=== PATIENT | male | born 1950 | race Caucasian/White ===

== ENCOUNTER → 2018-02-22 08:03 | Outpatient (CLI) | payer OTHER, SELFPAY ==
[2018-02-22 10:39] LABS: ALB/GLOB Ratio 1.2 RATIO (0.9-2.4); AST(SGOT) 16 U/L (15-37); Alanine Aminotransfer ALT/SGPT 31 U/L (16-61); Albumin, Serum 3.7 g/dL (3.2-5.0); Alkaline Phosphatase 72 U/L (45-117); Anion Gap 9 (5-15); BUN 16 mg/dL (7-18); BUN/Creat Ratio 17.1 RATIO (10-20); Calcium,Total 8.8 mg/dL (8.5-10.1); Chloride 104 mmol/L (98-107); Cholesterol 231 mg/dL (200); Creatinine, Serum 0.94 mg/dL (0.70-1.30); EST Glomerular Filtration Rate 86 mL/min (>60); Est Glom Filt Rate - Afr Amer 104 mL/min (>60); Globulin 3.1 g/dL (2.2-4.2); Glucose 83 mg/dL (74-106); High Density Lipoprotein 43 mg/dL; Potassium 4.5 mmol/L (3.5-5.1); Protein, Total 6.8 g/dL (6.4-8.2); Sodium Level 144 mmol/L (136-145); Triglycerides 180 mg/dL; Very Low Density Lipoprotein 36 mg/dL (5-40)
== END ==
PROVIDERS: Family Provider Family Medicine; PCP Family Medicine; Visit Provider Family Medicine
DX: Z00.00 Encounter for general adult medical examination without abnormal findings (principal)
CPT/HCPCS: 36415; 80053; 80061

== ENCOUNTER → 2020-03-14 | Outpatient (CLI) | payer OTHER, SELFPAY | END | disposition home or self-care (01) | LOC: LABSPEC 15:11 | PROVIDERS: PCP Family Medicine; Referring Provider Family Medicine; Visit Provider Family Medicine | DX: U07.1 COVID-19 (principal); J06.9 Acute upper respiratory infection, unspecified | CPT/HCPCS: 87635; U0005; U0003 ==

== ENCOUNTER → 2021-01-23 | Outpatient (CLI) | payer OTHER, SELFPAY ==
[2021-01-23 09:22] LABS: Red Blood Cells-Urine 0 SEEN /hpf (0-5)
[2021-01-23 10:44] LABS: Color, Urine Yellow (Yellow); Glucose, Dipstick Normal (Normal); Ketone-Dipstick 15 mg/dl (Negative); Leukocyte Esterase-Dipstick 500 /ul (Negative); Nitrite-Dipstick Negative (Negative); Occult Blood-Urine 50 /ul (Negative); Protein-Dipstick 30 mg/dl (Negative); Specific Gravity, Urine 1.015 (1.002-1.030); Urine Bilirubin Dipstick Negative (Negative); Urine Clarity Cloudy (Clear); Urine Urobilinogen Normal (Normal)
[2021-01-23 10:52] LABS: Amorphous Sediment 1+; Bacteria 2+ /hpf (None Seen); Mucous, Urine RARE /hpf (<or=2+); Squamous Epithelial Cells - UA 0-5 SEEN /hpf (0-5); White Blood Cells 5-10 SEEN /hpf (0-5)
== END | disposition home or self-care (01) ==
LOC: LABSPEC 09:21
PROVIDERS: PCP Family Medicine; Referring Provider Family Medicine; Visit Provider Family Medicine
DX: R33.9 Retention of urine, unspecified (principal)
CPT/HCPCS: 81001; 87077; 87086; 87088; 87186

== ENCOUNTER → 2021-02-06 10:44 | Outpatient (CLI) | payer OTHER, SELFPAY ==
[2021-02-06 13:08] LABS: Anion Gap 4 (5-15); BUN 22 mg/dL (7-18); BUN/Creat Ratio 25.3 RATIO (10-20); Calcium,Total 9.3 mg/dL (8.5-10.1); Chloride 106 mmol/L (98-107); Creatinine, Serum 0.87 mg/dL (0.70-1.30); EST Glomerular Filtration Rate 93 mL/min (>60); Est Glom Filt Rate - Afr Amer 112 mL/min (>60); Glucose 94 mg/dL (74-106); PSA,Total- Diagnostic 7.41 ng/mL (0.0-4.0); Potassium 4.1 mmol/L (3.5-5.1); Sodium Level 139 mmol/L (136-145)
== END ==
PROVIDERS: PCP Family Medicine; Referring Provider Family Medicine; Visit Provider Family Medicine
DX: N40.0 Benign prostatic hyperplasia without lower urinary tract symptoms (principal); N41.0 Acute prostatitis
CPT/HCPCS: 36415; 80048; 84153

== ENCOUNTER 2021-03-07 17:01 | Outpatient (CLI) | payer OTHER, SELFPAY ==
[2021-03-07 17:44] LABS: Absolute Lymphocyte Count 1.51 X10^3/uL (0.83-4.51); Absolute Neutrophil Count 3.9 X10^3/uL (2.0-7.7); Basophil# 0.04 X10^3/uL; Basophil% 0.7 % (0-1); Eosinophil# 0.08 X10^3/uL; Eosinophils% 1.3 % (0-5); Hematocrit 41.9 % (40-54); Hemoglobin 13.9 g/dL (13.0-16.5); Lymphocyte # 1.51 X10^3/ul (0.83-4.51); Lymphocyte % 25.5 % (19-41); Mean Corp Hgb Conc 33.2 g/dL (32-36); Mean Corpuscular Hgb 28.3 pg (27.0-32.0); Mean Corpuscular Volume 85.2 fL (80-94); Mean Platelet Vol. 9.9 fl (6.2-12.0); Monocyte# 0.42 X10^3/uL; Monocyte% 7.1 % (0-10); NRBC Flagged by Analyzer 0 % (0-5); Neutrophil # 3.86 X10^3/uL (2.7-7.7); Neutrophil % 65.1 % (47-70); Platelet Count 228 K/mm3 (150-450); RBC Distribution Width CV 13.2 % (11.6-14.6); RBC Distribution Width SD 40.4 fl (35.1-43.9); Red Blood Count 4.92 M/mm3 (4.6-6.2); White Blood Count 5.9 K/mm3 (4.4-11.0)
[2021-03-07 18:44] LABS: ALB/GLOB Ratio 1.1 RATIO (0.9-2.4); AST(SGOT) 18 U/L (15-37); Alanine Aminotransfer ALT/SGPT 35 U/L (16-61); Albumin, Serum 3.7 g/dL (3.2-5.0); Alkaline Phosphatase 65 U/L (45-117); Anion Gap 10 (5-15); BUN 17 mg/dL (7-18); Calcium,Total 8.6 mg/dL (8.5-10.1); Chloride 105 mmol/L (98-107); EST Glomerular Filtration Rate 79 mL/min (>60); Est Glom Filt Rate - Afr Amer 95 mL/min (>60); Globulin 3.5 g/dL (2.2-4.2); Glucose 110 mg/dL (74-106); PSA,Total- Diagnostic 6.17 ng/mL (0.0-4.0); Potassium 4.2 mmol/L (3.5-5.1); Protein, Total 7.2 g/dL (6.4-8.2); Sodium Level 143 mmol/L (136-145)
== END 2021-03-07 23:59 | disposition home or self-care (01) ==
LOC: MFPLAB 17:05
PROVIDERS: PCP Family Medicine; Referring Provider Family Medicine; Visit Provider Family Medicine
DX: N40.2 Nodular prostate without lower urinary tract symptoms (principal)
CPT/HCPCS: 36415; 80053; 84153; 85025

== ENCOUNTER 2021-04-09 08:30 | Outpatient (CLI) | payer OTHER, SELFPAY | END 2021-04-09 23:59 | disposition home or self-care (01) | PROVIDERS: PCP Family Medicine; Referring Provider Urology; Visit Provider Urology | DX: R97.20 Elevated prostate specific antigen [PSA] (principal) | CPT/HCPCS: 36415; 84153 ==

== ENCOUNTER 2021-04-11 11:58 | Emergency (ER) | payer OTHER, SELFPAY ==
[2021-04-11] VITALS (7 sets, daily range): BP systolic 142–180; BP diastolic 59–114; PULSE 70–86; RESP 16–18; TEMP 36.2; O2SAT 94–97; BMI 26.4
--- NOTE | 2021-04-11 12:23 | EKG12_ITS ---
Test Reason : DIZZINESS Blood Pressure : / mmHG Vent. Rate : 073 BPM Atrial Rate : 073 BPM P-R Int : 182 ms QRS Dur : 098 ms QT Int : 404 ms P-R-T Axes : 032 -11 052 degrees QTc Int : 445 ms Normal sinus rhythm Normal ECG Confirmed by PHIL LEOS, KILO ([id number]), fashion editor NOHELIA BRUNSON ([id number]) on 04/15/2021 1:27:54 PM Referred By: NADYA/CAMRON Confirmed By:HIEN VILLARREAL MD
--- NOTE | 2021-04-11 12:25 | EDS_ITS ---
HPI <LUL Turner - Last Filed: 04/11/21 15:07> History of Present Illness Chief Complaint: Dizziness Narrative Narrative: 70-year-old male with PMH of cervical dystonia presents with dizziness. 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 He waited in the back of his truck until his picked him up. He felt more lightheaded and off balance when walking. Denies a spinning sensation. There was no associated vision changes, focal motor or sensory changes, chest pain, shortness of breath, nausea, or vomiting. He states he had similar symptoms 5 years ago but it resolved without intervention. He has chronic speech difficulty from dystonia that is unchanged. He does not take aspirin or blood thinners. No recent illness or head trauma. PFSH <LUL Turner - Last Filed: 04/11/21 15:07> PFS Home Medications abobotulinumtoxinA [Dysport] 1,500 units SQ X1 05/20/16 [History Last Taken Unknown] omeprazole magnesium [Prilosec Otc] 1 tab PO BID PRN PRN 05/20/16 [History Last Taken Unknown] meclizine 25 mg PO 4X/DAY PRN PRN #20 tab 04/11/21 [Rx Last Taken Unknown] Allergy/AdvReac Type Severity Reaction Status Date / Time Penicillins Allergy Unknown Verified 04/11/21 12:01 Social History Smoking Status: Never smoker ROS <LUL Turner Last Filed: 04/11/21 15:07> ROS ED ROS Narrative Constitutional: Negative for fever, chills, malaise. Eyes: Negative for visual change. ENT: Negative for sore throat, ear pain, rhinorrhea. CVS: Negative for palpitations, chest pain, syncope. Respiratory: Negative for shortness of breath, cough, orthopnea. GI: Negative for abdominal pain, nausea, vomiting, diarrhea, constipation, melena, hematochezia. : Negative for dysuria, hematuria or frequency. Neuro: Negative for headache, motor/sensory dysfunction. Skin: Negative for rash, abscess, or wound. Musc: Negative for joint pain, swelling, trauma. Heme: Negative for easy bruising, bleeding, lymphadenopathy. EXAM <LUL Turner - Last Filed: 04/11/21 15:07> Physical Exam Narrative Exam Narrative: CONST: Patient sitting in no acute distress. EYES: Normal inspection. PERRLA, EOMI, horizontal nystagmus when looking to the left. Head: Chronic head movements secondary to dystonia. ENT: Normal inspection, moist mucous membranes. NECK: Normal inspection. RESP: No respiratory distress, CTAB. CVS: Regular rate and rhythm, no murmur, no gallop. ABD: Soft and nontender, no guarding or rebound, nondistended. Back: Normal inspection. SKIN: Color normal, no rash, warm, dry, intact. EXTREMITIES: Normal appearance, no pedal edema. 5/5 upper and lower extremity strength, normal sensation to light touch, 2+ radial and DP pulses. NEURO: Oriented x4. Cranial nerves II through XII grossly intact. Chronic dysarthria secondary to dystonia. Symmetric smile, no upper or lower extremity drift, normal eliwln-vj-kvre and oorq-nh-jlzg bilaterally, no clonus and downgoing Babinski. Normal gait. PSYCH: Normal affect. Const Vital Signs: 04/11/21 11:59 04/11/21 12:26 04/11/21 12:33 Temperature 97.2 F L Temperature Source Temporal Pulse Rate 83 Pulse Rate [Lying] 79 Pulse Rate [Sitting] 79 Pulse Rate [Standing] 86 Respiratory Rate 16 Respiratory Effort Normal Non-Labored Blood Pressure 157/104 H Blood Pressure [Lying] 168/105 H Blood Pressure [Sitting] 172/114 H Blood Pressure [Standing] 179/113 H Blood Pressure Mean 121 Blood Pressure Mean [Lying] 126 Blood Pressure Mean [Sitting] 133 Blood Pressure Mean [Standing] 135 Pulse Ox 97 Oxygen Delivery Method Room Air 04/11/21 13:30 04/11/21 13:31 04/11/21 13:33 Temperature Temperature Source Pulse Rate 85 76 Pulse Rate [Lying] Pulse Rate [Sitting] Pulse Rate [Standing] Respiratory Rate 18 Respiratory Effort Blood Pressure 142/59 H 180/100 H 156/98 H Blood Pressure [Lying] Blood Pressure [Sitting] Blood Pressure [Standing] Blood Pressure Mean 86 126 117 Blood Pressure Mean [Lying] Blood Pressure Mean [Sitting] Blood Pressure Mean [Standing] Pulse Ox 95 Oxygen Delivery Method Room Air 04/11/21 13:48 04/11/21 14:28 Temperature Temperature Source Pulse Rate 70 78 Pulse Rate [Lying] Pulse Rate [Sitting] Pulse Rate [Standing] Respiratory Rate 18 18 Respiratory Effort Blood Pressure 142/95 H 146/82 H Blood Pressure [Lying] Blood Pressure [Sitting] Blood Pressure [Standing] Blood Pressure Mean 110 Blood Pressure Mean [Lying] Blood Pressure Mean [Sitting] Blood Pressure Mean [Standing] Pulse Ox 94 96 Oxygen Delivery Method Room Air <Dr. Kirk Olsen DO - Last Filed: 04/11/21 15:32> Physical Exam Const Vital Signs: 04/11/21 11:59 04/11/21 12:26 04/11/21 12:33 Temperature 97.2 F L Temperature Source Temporal Pulse Rate 83 Pulse Rate [Lying] 79 Pulse Rate [Sitting] 79 Pulse Rate [Standing] 86 Respiratory Rate 16 Respiratory Effort Normal Non-Labored Blood Pressure 157/104 H Blood Pressure [Lying] 168/105 H Blood Pressure [Sitting] 172/114 H Blood Pressure [Standing] 179/113 H Blood Pressure Mean 121 Blood Pressure Mean [Lying] 126 Blood Pressure Mean [Sitting] 133 Blood Pressure Mean [Standing] 135 Pulse Ox 97 Oxygen Delivery Method Room Air 04/11/21 13:30 04/11/21 13:31 04/11/21 13:33 Temperature Temperature Source Pulse Rate 85 76 Pulse Rate [Lying] Pulse Rate [Sitting] Pulse Rate [Standing] Respiratory Rate 18 Respiratory Effort Blood Pressure 142/59 H 180/100 H 156/98 H Blood Pressure [Lying] Blood Pressure [Sitting] Blood Pressure [Standing] Blood Pressure Mean 86 126 117 Blood Pressure Mean [Lying] Blood Pressure Mean [Sitting] Blood Pressure Mean [Standing] Pulse Ox 95 Oxygen Delivery Method Room Air 04/11/21 13:48 04/11/21 14:28 Temperature Temperature Source Pulse Rate 70 78 Pulse Rate [Lying] Pulse Rate [Sitting] Pulse Rate [Standing] Respiratory Rate 18 18 Respiratory Effort Blood Pressure 142/95 H 146/82 H Blood Pressure [Lying] Blood Pressure [Sitting] Blood Pressure [Standing] Blood Pressure Mean 110 Blood Pressure Mean [Lying] Blood Pressure Mean [Sitting] Blood Pressure Mean [Standing] Pulse Ox 94 96 Oxygen Delivery Method Room Air MDM <Itzel Lu PA - Last Filed: 04/11/21 15:07> [facility] MDM Narrative Medical decision making narrative: Patient presents with lightheadedness. He appears well nontoxic. Initially he was hypertensive at 150s/100s, otherwise normal vital signs. He has chronic dysarthria and head movements from his dystonia. His pupils are equal and reactive and extraocular motion intact. Upper and lower extremity MSPs are intact with normal cerebellar function. I ambulated him in the room and he had normal gait. Basic labs are within normal limits. EKG is normal sinus rhythm with normal intervals and no ischemic changes. CT brain is unable to be obtained due to his dystonia and head movements but based on his normal neurological exam I have low concern for stroke. He was treated with IV labetalol and meclizine with some improvement. I discussed these findings with the patient. He states he is going to [place] for 1 week and I recommended he follow-up with his PCP as soon as he gets home to recheck his blood pressure. I also prescribed meclizine to take as needed. He was counseled on signs that would warrant return to an ER and was discharged in stable condition. Diagnosis 1. Lightheadedness 2. Hypertension Lab Data Labs: Laboratory Results - last 24 hr 04/11/21 04/11/21 12:45 12:45 WBC 4.8 RBC 5.07 Hgb 14.8 Hct 43.2 MCV 85.2 MCH 29.2 MCHC 34.3 RDW Std Deviation 39.8 RDW Coeff of Mila 12.9 Plt Count 219 MPV 9.9 Immature Gran % (Auto) 0.400 Neut % (Auto) 60.4 Lymph % (Auto) 26.2 Hardeman % (Auto) 8.0 Eos % (Auto) 4.4 Baso % (Auto) 0.6 Absolute Neuts (auto) 2.9 Absolute Lymphs (auto) 1.25 Nucleated RBC % 0 Sodium 139 Potassium 4.0 Chloride 106 Carbon Dioxide 29.0 Anion Gap 4 L BUN 19 H Creatinine 0.87 Estim Creat Clear Calc 85.35 Est GFR (MDRD) Af Amer 111 Est GFR (MDRD) Non-Af 92 BUN/Creatinine Ratio 21.8 H Glucose 97 Calcium 8.8 EKG Initial EKG: Attestation: I personally reviewed and interpreted this EKG as follows: Interpretation: Sinus Rhythm Comments: Normal sinus rhythm, IN interval 182 ms, QRS duration 98 ms, QTC 445 ms <Dr. Kirk Olsen, DO - Last Filed: 04/11/21 15:32> MDM MDM Narrative Medical decision making narrative: Patient was seen with me. I agree with the history and physical examination. Patient is a 70-year-old male who presents with dizziness that began today while driving. Patient states he felt like he was lightheaded. Patient states he was able to pull off to the side of the road. Patient denies any syncopal event. Patient states it felt like he was lightheaded but there was some spinning sensation to it as well. Patient denies any headaches. Patient denies any hearing changes. Vital signs are stable except for mildly elevated blood pressure. Pupils are equal, round, and reactive to light bilaterally. Extraocular muscles are intact. There is no nystagmus noted. Neck is supple. Trachea is midline. There is no JVD. Heart was regular rate and rhythm. Lungs are clear and equal bilaterally. Abdomen is soft. Bowel sounds are normal. There is no tenderness. Cranial nerves II through XII are intact. There are no focal motor or sensory deficits. Patient was given a dose of meclizine here. Patient was given a dose of labetalol here. EKG was obtained. On my interpretation, there is a normal sinus rhythm. There are no acute ST or T wave changes. CBC was within normal limits. Basic metabolic profile was essentially within normal limits. Patient is feeling better on reevaluation. Patient was given a prescription for meclizine. Patient was instructed to follow-up with his primary care physician in 5 to 7 days. Patient understood and was agreeable with the plan. All questions were answered. Lab Data Attestation: I reviewed the patient's lab results. Labs: Laboratory Results - last 24 hr 04/11/21 04/11/21 12:45 12:45 WBC 4.8 RBC 5.07 Hgb 14.8 Hct 43.2 MCV 85.2 MCH 29.2 MCHC 34.3 RDW Std Deviation 39.8 RDW Coeff of Mila 12.9 Plt Count 219 MPV 9.9 Immature Gran % (Auto) 0.400 Neut % (Auto) 60.4 Lymph % (Auto) 26.2 Hardeman % (Auto) 8.0 Eos % (Auto) 4.4 Baso % (Auto) 0.6 Absolute Neuts (auto) 2.9 Absolute Lymphs (auto) 1.25 Nucleated RBC % 0 Sodium 139 Potassium 4.0 Chloride 106 Carbon Dioxide 29.0 Anion Gap 4 L BUN 19 H Creatinine 0.87 Estim Creat Clear Calc 85.35 Est GFR (MDRD) Af Amer 111 Est GFR (MDRD) Non-Af 92 BUN/Creatinine Ratio 21.8 H Glucose 97 Calcium 8.8 Discharge Plan Triage Chief Complaint: Dizziness ED Provider: Itzel Lu Dx/Rx/DC Orders Clinical Impression: Dizziness Instructions: Dizziness Fainting Poss Causes Prescriptions: New meclizine 25 mg tablet 25 mg PO 4X/DAY PRN PRN (Reason: Dizziness) Qty: 20 RF: 0 No Action omeprazole magnesium [Prilosec OTC] 20 MG tablet,delayed release (DR/EC) 1 tab PO BID PRN PRN (Reason: REFLUX) RF: 0 abobotulinumtoxinA [Dysport] 500 UNIT recon soln 1,500 units SQ X1 RF: 0 Primary Care Provider: Kirk Wade Referrals: Kirk Wade MD [Primary Care Provider] - Activity Restrictions/Additional Instructions: Today you were seen for dizziness. Your heart rhythm on her EKG looked normal. Your blood work was within normal limits. You had a normal neurological exam so I feel you are safe to go home. I prescribed meclizine to take as needed for dizziness. I also recommend you see your primary care doctor as soon as you get home from vacation to recheck your blood pressure as if it remains high you may need started on medication for this. If you have new or worsening symptoms please return to the emergency room. Disposition Disposition: Home, Self Care Discharge Date/Time: 04/11/21 15:13
[2021-04-11 13:00] LABS: Absolute Lymphocyte Count 1.25 X10^3/uL (0.83-4.51); Absolute Neutrophil Count 2.9 X10^3/uL (2.0-7.7); Basophil# 0.03 X10^3/uL; Basophil% 0.6 % (0-1); Eosinophil# 0.21 X10^3/uL; Eosinophils% 4.4 % (0-5); Hematocrit 43.2 % (40-54); Hemoglobin 14.8 g/dL (13.0-16.5); Lymphocyte # 1.25 X10^3/ul (0.83-4.51); Lymphocyte % 26.2 % (19-41); Mean Corp Hgb Conc 34.3 g/dL (32-36); Mean Corpuscular Hgb 29.2 pg (27.0-32.0); Mean Corpuscular Volume 85.2 fL (80-94); Mean Platelet Vol. 9.9 fl (6.2-12.0); Monocyte# 0.38 X10^3/uL; NRBC Flagged by Analyzer 0 % (0-5); Neutrophil # 2.88 X10^3/uL (2.7-7.7); Neutrophil % 60.4 % (47-70); Platelet Count 219 K/mm3 (150-450); RBC Distribution Width CV 12.9 % (11.6-14.6); RBC Distribution Width SD 39.8 fl (35.1-43.9); Red Blood Count 5.07 M/mm3 (4.6-6.2); White Blood Count 4.8 K/mm3 (4.4-11.0)
[2021-04-11 13:13] LABS: Anion Gap 4 (5-15); BUN 19 mg/dL (7-18); BUN/Creat Ratio 21.8 RATIO (10-20); Calcium,Total 8.8 mg/dL (8.5-10.1); Chloride 106 mmol/L (98-107); Creatinine, Serum 0.87 mg/dL (0.70-1.30); EST Glomerular Filtration Rate 92 mL/min (>60); Est Glom Filt Rate - Afr Amer 111 mL/min (>60); Estimated Creatinine Clearance 85.35 ml/min; Glucose 97 mg/dL (74-106); Sodium Level 139 mmol/L (136-145)
[2021-04-11] MEDS: Meclizine HCl 25 MG Tablet PO (13:26)
[2021-04-11] MEDS: Labetalol (Prefilled) 20 MG/4 ML 10 MG IV (13:37)
== END 2021-04-11 15:13 | disposition home or self-care (01) ==
PROVIDERS: Emergency Provider Physician Assistant; PCP Family Medicine; Visit Provider Physician Assistant
DX: R42 Dizziness and giddiness (principal); I10 Essential (primary) hypertension
CPT/HCPCS: 80048; 85025; 93005; 96374; 99285; A4216

== ENCOUNTER 2021-05-02 16:24 | Outpatient (CLI) | payer OTHER, SELFPAY ==
--- NOTE | 2021-05-02 | PROSBIL_PTH ---
PATIENT: CARLA WALKER LOC: [facility] U#:[id number] AGE/SX: 70/M ROOM: RE05/02/[address]: Dr. Rich Flores MD : 1950 BED: DIS: 05/02/2021 SPEC #: [id number] RECD: 05/03/21 10:03 STATUS: MELISSA HDZ #: [id number] MERLE: 05/02/21 00:[address]: Rich Flores DEPT: SURGICAL PATHOLOGY RECD BY: Tony Morales ENTERED: 05/03/21 10:04 SP TYPE: PROST BX OT DR: Dr. Kirk Wade MD Tissues: A - PROSTATE RIGHT B - PROSTATE RIGHT C - PROSTATE RIGHT D - PROSTATE LEFT E - PROSTATE LEFT F - PROSTATE LEFT Procedures: PROSTATE BX Special Stain Group I AFB Stain (control) GMS Stain (control) HEADER OPERATION: Prostate biopsy PRE-OP DIAGNOSIS: R97.20 TISSUE SUBMITTED: A - Right apex, B - Right mid, C - Right base, D - Left apex, E - Left mid, F - Left base MICROSCOPIC DIAGNOSIS A. Right prostate, apex, core biopsy: Prostatic tissue, negative for malignancy. Focal moderate chronic inflammation and non-necrotizing granuloma formation. See comment. B. Right prostate, mid, core biopsy: Prostatic tissue, negative for malignancy. Focal moderate chronic inflammation and non-necrotizing granuloma formation. See comment. C. Right prostate, base, core biopsy: Prostatic tissue, negative for malignancy. Focal moderate chronic inflammation. D. Left prostate, apex, core biopsy: Prostatic tissue, negative for malignancy. Focal moderate chronic inflammation. E. Left prostate, mid, core biopsy: Prostatic tissue, negative for malignancy. Focal moderate chronic inflammation and non-necrotizing granuloma formation. See comment. F. Left prostate, base, core biopsy: Prostatic tissue, negative for malignancy. Focal mild chronic inflammation. SJ:rg 05/06/2021 COMMENT A, B & E - Special stains for acid fast bacilli and fungi are negative for organisms; matched controls are appropriate. This case has been reviewed in consultation with Dr. Dee who concurs with the above diagnosis. MICROSCOPIC DESCRIPTION Slides are reviewed. GROSS DESCRIPTION A - Received is one container designated prostate, right apex. The specimen consists of one elongated fragment of light mckeon-white soft tissue measuring 1 cm in length and 0.1 cm in diameter. The specimen is totally submitted in one cassette. B - Received is one container designated prostate, right mid. The specimen consists of two elongated fragments of light mckeon-white soft tissue each measuring 1.5 cm in length and 0.1 cm in diameter. The specimen is totally submitted in one cassette. C - Received is one container designated prostate, right base. The specimen consists of two elongated fragments of light mckeon-white soft tissue measuring 1.2 and 1.8 cm in length and 0.1 cm in diameter. The specimen is totally submitted in one cassette. D - Received is one container designated prostate, left apex. The specimen consists of one elongated fragment of light mckeon-white soft tissue measuring 1.3 cm in length and 0.1 cm in diameter. The specimen is totally submitted in one cassette. E - Received is one container designated prostate, left mid. The specimen consists of two elongated fragments of light mckeon-white soft tissue measuring 1 and 1.2 cm in length and 0.1 cm in diameter. The specimen is totally submitted in one cassette. F - Received is one container designated prostate, left base. The specimen consists of two elongated fragments of light mckeon-white soft tissue each measuring 1.2 cm in length and 0.1 cm in diameter. The specimen is totally submitted in one cassette. / SJ:rg 05/03/2021 TC:3 CPT: 55011 x6, 88483 x6
== END 2021-05-02 23:59 | disposition home or self-care (01) ==
LOC: LABSPEC 16:26
PROVIDERS: PCP Family Medicine; Visit Provider Urology
DX: R97.20 Elevated prostate specific antigen [PSA] (principal)
CPT/HCPCS: 88305; 88312; G0416

== ENCOUNTER → 2022-01-08 | Outpatient (CLI) | payer OTHER, SELFPAY ==
[2022-01-08 17:54] LABS: Absolute Lymphocyte Count 1.68 X10^3/uL (0.83-4.51); Absolute Neutrophil Count 3.1 X10^3/uL (2.0-7.7); Basophil# 0.04 X10^3/uL; Basophil% 0.7 % (0-1); Eosinophil# 0.28 X10^3/uL; Eosinophils% 4.9 % (0-5); Hematocrit 42.8 % (40-54); Hemoglobin 13.8 g/dL (13.0-16.5); Lymphocyte # 1.68 X10^3/ul (0.83-4.51); Lymphocyte % 29.5 % (19-41); Mean Corp Hgb Conc 32.2 g/dL (32-36); Mean Corpuscular Hgb 28.3 pg (27.0-32.0); Mean Corpuscular Volume 87.7 fL (80-94); Mean Platelet Vol. 10.8 fl (6.2-12.0); Monocyte% 10.5 % (0-10); NRBC Flagged by Analyzer 0 % (0-5); Neutrophil # 3.08 X10^3/uL (2.7-7.7); Platelet Count 202 K/mm3 (150-450); RBC Distribution Width SD 41.4 fl (35.1-43.9); Red Blood Count 4.88 M/mm3 (4.6-6.2); White Blood Count 5.7 K/mm3 (4.4-11.0)
[2022-01-08 18:37] LABS: ALB/GLOB Ratio 0.9 RATIO (0.9-2.4); AST(SGOT) 18 U/L (15-37); Alanine Aminotransfer ALT/SGPT 29 U/L (16-61); Albumin, Serum 3.5 g/dL (3.2-5.0); Alkaline Phosphatase 62 U/L (45-117); Anion Gap 5 (5-15); BUN 23 mg/dL (7-18); Chloride 107 mmol/L (98-107); Creatinine, Serum 0.88 mg/dL (0.70-1.30); EST Glomerular Filtration Rate 90 mL/min (>60); Est Glom Filt Rate - Afr Amer 109 mL/min (>60); Globulin 3.7 g/dL (2.2-4.2); Glucose 85 mg/dL (74-106); Potassium 4.3 mmol/L (3.5-5.1); Protein, Total 7.2 g/dL (6.4-8.2); Sodium Level 142 mmol/L (136-145)
== END | disposition home or self-care (01) ==
LOC: MFPLAB 14:38
PROVIDERS: PCP Family Medicine; Visit Provider Nurse Practitioner Family
DX: R42 Dizziness and giddiness (principal)
CPT/HCPCS: 36415; 80053; 85025

== ENCOUNTER → 2022-05-02 | Outpatient (CLI) | payer OTHER, SELFPAY ==
[2022-05-02 10:46] LABS: Anion Gap 6 (5-15); BUN 21 mg/dL (7-18); BUN/Creat Ratio 25.9 RATIO (10-20); Chloride 108 mmol/L (98-107); Cholesterol 227 mg/dL (200); Creatinine, Serum 0.81 mg/dL (0.70-1.30); EST Glomerular Filtration Rate 100 mL/min (>60); Est Glom Filt Rate - Afr Amer 121 mL/min (>60); Glucose 95 mg/dL (74-106); High Density Lipoprotein 38 mg/dL; Potassium 4.4 mmol/L (3.5-5.1); Sodium Level 142 mmol/L (136-145); Triglycerides 173 mg/dL; Very Low Density Lipoprotein 35 mg/dL (5-40)
== END | disposition home or self-care (01) ==
PROVIDERS: PCP Family Medicine; Referring Provider Family Medicine; Visit Provider Nurse Practitioner Family
DX: Z13.220 Encounter for screening for lipoid disorders (principal); Z13.1 Encounter for screening for diabetes mellitus
CPT/HCPCS: 36415; 80048; 80061

== ENCOUNTER → 2022-06-30 | Outpatient (CLI) | payer OTHER, SELFPAY ==
[2022-06-30 17:10] LABS: PSA,Total- Diagnostic 1.42 ng/mL (0.0-4.0)
== END | disposition home or self-care (01) ==
LOC: LAB 16:33
PROVIDERS: PCP Family Medicine; Referring Provider Urology; Visit Provider Urology
DX: R97.20 Elevated prostate specific antigen [PSA] (principal)
CPT/HCPCS: 36415; 84153

== ENCOUNTER 2023-01-27 14:16 | Day surgery (SDC) | payer OTHER, SELFPAY ==
[2023-01-27 15:07] VITALS: BP 155/86; PULSE 89; RESP 18; TEMP 36.7; O2SAT 95; BMI 28.5
[2023-01-27] MEDS: Lactated Ringers 1,000 ML 15 ML IV (15:15)
--- NOTE | 2023-01-27 15:30 | COLBX_PTH ---
PATIENT: CARLA WALKER LOC: EN U#:[id number] AGE/SX: 72/M ROOM: RE01/27/[address]: Dr. Terry Lucero DO : 1950 BED: DIS: 01/27/2023 SPEC #: [id number] RECD: 01/28/23 07:50 STATUS: MELISSA RESondra #: [id number] MERLE: 01/27/23 15:[address]: Terry Lucero DEPT: SURGICAL PATHOLOGY RECD BY: Samara Daniel ENTERED: 01/28/23 07:50 SP TYPE: COLON BX OTHR DR: Dr. Kirk Wade MD Tissues: Esophageal mucous membrane Procedures: Special Stain Group II Surgery Specimen Level IV Alcian Blue/PAS (control) HEADER OPERATION: Colonoscopy, EGD with biopsy and dilatation PRE-OP DIAGNOSIS: Dysphagia, screening TISSUE SUBMITTED: Distal esophagus biopsy MICROSCOPIC DIAGNOSIS Distal esophagus, biopsy: Gastroesophageal junctional mucosa with mild chronic inflammation. Focal changes of reflux. No evidence of goblet cell metaplasia. See comment. AM:deidre 01/29/2023 COMMENT Alcian blue/PAS stain with matched control supports the above diagnosis. MICROSCOPIC DESCRIPTION Slides are reviewed. GROSS DESCRIPTION Received in fixative is one container labeled with the patient's name and designated distal esophagus. The specimen consists of one irregular fragment of light mckeon soft tissue that measures 0.5 x 0.5 x 0.1 cm. The specimen is totally submitted in one cassette. / AM:deidre 01/28/2023 TC:3 CPT: 81760, 41886
--- NOTE | 2023-01-27 16:05 | PCM.HP.BLA ---
History and Physical Date of Admission: 01/27/23 71 M who presents to the office today for PMH dysarthria; urine retention; BPH; vertebral artery syndrome; cervical dystonia PCP OV noting need for updated colorectal screening services with additional history of reflux and intermittent dysphagia. ? Colonoscopy 03.30.07 OSH lesion removal. Pathology unavailable. EGD 02.09.12 OSH multiple gastric polyps; tortuous distal esophagus. Pathology unavailable. Colonoscopy 2016 OSH report and pathology unavailable. Ulises reports diverticulosis. *BGI established 11.24.22 dysphagia has been present for many years with some worsening; does have difficulty with coughing and choking with lodging of food approximately once a week and will cough it up. ROS Const Constitutional: No anorexia, fatigue, fever(s), weight change or sleep problems Eyes Eyes: No change in vision ENT ENT: No abnormal hearing, difficulty swallowing, mouth lesions, tongue swelling or throat swelling Resp Respiratory: No cough or shortness of breath Cardio Cardiology: No chest pain at rest, chest pain with exertion, shortness of breath or dyspnea on exertion Gastro GI: No difficulty swallowing Genitourinary Male: No difficulty urinating or burning urination Musc Musculoskeletal: No joint pain, joint swelling, muscle weakness or decreased muscle mass Skin Skin: No hair loss in leg, yellowing of the eye, itchy eyes, rash, skin ulcer or skin swelling Neuro Neurology: No abnormal hearing, abnormal movements, confusion, unsteady gait/balance or memory loss Psych Psychiatric: No anxiety, No confusion and No memory loss Endo Endocrine: No fatigue or weight change Aller/Imm Allergy/Immunologic: No itchy eyes, throat swelling or tongue swelling Terry/Lymp Hematologic/Lymphatic: No easy bleeding, easy bruising or enlarged lymph nodes Exam Const General: cooperative and comfortable Nutritional Appearance: average body habitus and well nourished [facility] Head: normal to inspection Ears: hearing grossly normal bilaterally Nose: external nose normal Face and sinus: normal facial exam Mouth: oral mucosae normal Throat: posterior oropharynx normal Eyes General: appearance normal, both eyes and all related structures Neck Neck: normal visual inspection Chest Chest palpation & inspection: normal inspection of the chest and normal palpation of entire chest wall Resp Effort & Inspection: normal respiratory effort Auscultation: Bilateral: Clear to Auscultation Cardio Palpation: normal PMI Rate: regular rate Rhythm: regular rhythm GI Inspection: normal to inspection Auscultation: normal bowel sounds Percussion: normal to percussion Palpation: no hepatosplenomegaly Skin General: no rashes or lesions noted Neuro General: patient alert Extrem General: normal to inspection Psych Affect: normal affect Quality Reporting Tobacco Screening ([facility] 138) Smoking Status: Never smoker Assessment and Plan Assessment and Plan (1) Dysphagia: Status: Acute (2) Screening for colon cancer: Status: Acute Plan 71-year-old with past medical history of cervical dystonia, speech impediment, gastroesophageal reflux disease who has been having progressive esophageal dysphagia. He had an upper endoscopy several years ago which showed he had a tortuous esophagus. He did undergo esophageal dilation. It did give him some improvement in his esophageal dysphagia. He has not had an official swallowing study. He has not had imaging such as a barium esophagram or imaging of his chest. He is also in need of a screening colonoscopy. He had a colonoscopy approximately 10 years ago and it was normal. He has elected to undergo an upper endoscopy for evaluation of his upper esophagus. I suspect that he does have esophageal motility disorder secondary to other under lying etiologies. He will undergo screening colonoscopy. He was explained alternatives, risk, benefits include not withstanding bleeding, infection, sepsis, perforation, need for emergent surgery . He will have an ASA of 3. I have examined the patient and the H&P has been reviewed. There are no clinical changes since date of exam.
[2023-01-27 16:40] VITALS: BP 155/86; BP 178/96; PULSE 81; RESP 16; TEMP 37.3; O2SAT 98
--- NOTE | 2023-01-27 16:43 | OP.CCLET_ITS ---
01/27/2023 Kirk Wade [address] [place] [address] Re : Upper GI endoscopy procedure for [facility] Dear Dr. Wade This procedure was performed on Friday, January 27, 2023. My impressions and recommendations are as follows: Impressions : - Benign-appearing esophageal stenosis. Dilated. - Z-line irregular, 40 cm from the incisors. Biopsied. - Multiple gastric polyps. - No gross lesions in the second portion of the duodenum. Recommendations : - Discharge patient to home. - Resume previous diet. - Continue present medications. - Await pathology results. My findings are described in the full procedure note, which is enclosed. If I can be of further assistance, please feel free to contact me at . Sincerely, Terry Lucero, 01/27/2023 4:42:35 PM This report has been signed electronically.
--- NOTE | 2023-01-27 16:43 | OP.EGD_ITS ---
Patient Name: Ulises Yan Procedure Date: 01/27/2023 4:11 PM Date of : 1950 Age: 72 Procedure: Upper GI endoscopy Indications: Dysphagia Providers: Terry Lucero DO Referring MD: Terry Lucero DO Medicines: Monitored Anesthesia Care Patient Profile: This is a 72 year old male. Refer to note in patient chart for documentation of history and physical. Patient has symptoms of chronic dysphagia and dysphagia with both liquids and solids. Complications: No immediate complications. Procedure: Pre-Anesthesia Assessment: - Prior to the procedure, a History and Physical was performed, and patient medications and allergies were reviewed. The patient is competent. The risks and benefits of the procedure and the sedation options and risks were discussed with the patient. All questions were answered and informed consent was obtained. Patient identification and proposed procedure were verified by the physician in the pre-procedure area. Mental Status Examination: normal. Airway Examination: normal oropharyngeal airway and neck mobility. Respiratory Examination: clear to auscultation. CV Examination: normal. Prophylactic Antibiotics: The patient does not require prophylactic antibiotics. Prior Anticoagulants: The patient has taken no anticoagulant or antiplatelet agents. ASA Grade Assessment: II - A patient with mild systemic disease. After reviewing the risks and benefits, the patient was deemed in satisfactory condition to undergo the procedure. The anesthesia plan was to use monitored anesthesia care (MAC). Immediately prior to administration of medications, the patient was re-assessed for adequacy to receive sedatives. The heart rate, respiratory rate, oxygen saturations, blood pressure, adequacy of pulmonary ventilation, and response to care were monitored throughout the procedure. The physical status of the patient was re-assessed after the procedure. After obtaining informed consent, the endoscope was passed under direct vision. Throughout the procedure, the patient's blood pressure, pulse, and oxygen saturations were monitored continuously. The Colonoscope was introduced through the mouth, and advanced to the second part of duodenum. The upper GI endoscopy was accomplished without difficulty. The patient tolerated the procedure well. Scope In: 4:17:17 PM Scope Out: 4:24:55 PM Total Procedure Duration Time 0 hours 7 minutes 38 seconds Findings: One benign-appearing, intrinsic moderate (circumferential scarring or stenosis; an endoscope may pass) stenosis was found 20 to 22 cm from the incisors. The stenosis was traversed. A guidewire was placed and the scope was withdrawn. Dilation was performed with a Savary dilator with no resistance at 60 Fr. The dilation site was examined following endoscope reinsertion and showed moderate improvement in luminal narrowing. Estimated blood loss was minimal. The Z-line was irregular and was found 40 cm from the incisors. Biopsies were taken with a cold forceps for histology. Verification of patient identification for the specimen was done. Estimated blood loss was minimal. Multiple 5 mm hyperplastic polyps with no bleeding and no stigmata of recent bleeding were found in the entire examined stomach. No gross lesions were noted in the second portion of the duodenum. Impression: - Benign-appearing esophageal stenosis. Dilated. - Z-line irregular, 40 cm from the incisors. Biopsied. - Multiple gastric polyps. - No gross lesions in the second portion of the duodenum. Recommendation: - Discharge patient to home. - Resume previous diet. - Continue present medications. - Await pathology results. Procedure Code(s): --- Professional --- 87702, Esophagogastroduodenoscopy, flexible, transoral; with insertion of guide wire followed by passage of dilator(s) through esophagus over guide wire 64533, 59,51, Esophagogastroduodenoscopy, flexible, transoral; with biopsy, single or multiple CPT copyright 2021 [employer]. All rights reserved. The codes documented in this report are preliminary and upon calculus teacher review may be revised to meet current compliance requirements. Terry Lucero DO 01/27/2023 4:42:35 PM This report has been signed electronically. Number of Addenda: 0 Note Initiated On: 01/27/2023 4:11 PM
[2023-01-27 16:45] VITALS: BP 155/86; BP 172/94; PULSE 83; RESP 16; O2SAT 95
--- NOTE | 2023-01-27 16:45 | OP.COLON_ITS ---
Patient Name: Ulises Yan Procedure Date: 01/27/2023 4:25 PM Date of : 1950 Age: 72 Procedure: Colonoscopy Indications: Screening for colorectal malignant neoplasm Providers: Terry Lucero DO Referring MD: Terry Lucero DO Medicines: Monitored Anesthesia Care Patient Profile: This is a 72 year old male. Refer to note in patient chart for documentation of history and physical. Patient has symptoms of chronic dysphagia and dysphagia with both liquids and solids. Last Colonoscopy: more than 10 years ago. Complications: No immediate complications. Procedure: Pre-Anesthesia Assessment: - Prior to the procedure, a History and Physical was performed, and patient medications and allergies were reviewed. The patient is competent. The risks and benefits of the procedure and the sedation options and risks were discussed with the patient. All questions were answered and informed consent was obtained. Patient identification and proposed procedure were verified by the physician in the pre-procedure area. Mental Status Examination: normal. Airway Examination: normal oropharyngeal airway and neck mobility. Respiratory Examination: clear to auscultation. CV Examination: normal. Prophylactic Antibiotics: The patient does not require prophylactic antibiotics. Prior Anticoagulants: The patient has taken no anticoagulant or antiplatelet agents. ASA Grade Assessment: II - A patient with mild systemic disease. After reviewing the risks and benefits, the patient was deemed in satisfactory condition to undergo the procedure. The anesthesia plan was to use monitored anesthesia care (MAC). Immediately prior to administration of medications, the patient was re-assessed for adequacy to receive sedatives. The heart rate, respiratory rate, oxygen saturations, blood pressure, adequacy of pulmonary ventilation, and response to care were monitored throughout the procedure. The physical status of the patient was re-assessed after the procedure. After I obtained informed consent, the scope was passed under direct vision. Throughout the procedure, the patient's blood pressure, pulse, and oxygen saturations were monitored continuously. The Colonoscope was introduced through the anus and advanced to the cecum, identified by appendiceal orifice and ileocecal valve. The colonoscopy was performed without difficulty. The patient tolerated the procedure well. The quality of the bowel preparation was adequate. The ileocecal valve, appendiceal orifice, and rectum were photographed. Scope In: 4:25:53 PM Scope Withdrawal Time 0 hours 6 minutes 13 seconds Scope Out: 4:33:49 PM Total Procedure Duration Time 0 hours 7 minutes 56 seconds Findings: The perianal and digital rectal examinations were normal. Multiple small and large-mouthed diverticula were found in the recto-sigmoid colon and sigmoid colon. The exam was otherwise without abnormality on direct and retroflexion views. Impression: - Diverticulosis in the recto-sigmoid colon and in the sigmoid colon. - The examination was otherwise normal on direct and retroflexion views. - No specimens collected. Recommendation: - Discharge patient to home. - Resume previous diet. - Continue present medications. - Repeat colonoscopy in 10 years for screening purposes. Procedure Code(s): --- Professional --- G0121, Colorectal cancer screening; colonoscopy on individual not meeting criteria for high risk CPT copyright 2021 [employer]. All rights reserved. The codes documented in this report are preliminary and upon gold leaf layer review may be revised to meet current compliance requirements. Terry Lucero DO 01/27/2023 4:44:50 PM This report has been signed electronically. Number of Addenda: 0 Note Initiated On: 01/27/2023 4:25 PM
--- NOTE | 2023-01-27 16:45 | OP.CCLET_ITS ---
01/27/2023 Kirk Wade [address] [place] [address] Re : Colonoscopy procedure for Ulises [facility] [place] Dear Dr. Wade This procedure was performed on Friday, January 27, 2023. My impressions and recommendations are as follows: Impressions : - Diverticulosis in the recto-sigmoid colon and in the sigmoid colon. - The examination was otherwise normal on direct and retroflexion views. - No specimens collected. Recommendations : - Discharge patient to home. - Resume previous diet. - Continue present medications. - Repeat colonoscopy in 10 years for screening purposes. My findings are described in the full procedure note, which is enclosed. If I can be of further assistance, please feel free to contact me at . Sincerely, Terry Lucero, 01/27/2023 4:44:50 PM This report has been signed electronically.
[2023-01-27 16:50] VITALS: BP 155/86; BP 177/90; PULSE 83; RESP 16; TEMP 37.2; O2SAT 99
[2023-01-27 17:27] VITALS: BP 155/86
== END 2023-01-27 17:29 | disposition home or self-care (01) ==
LOC: EN 14:17 → AC 14:19
PROVIDERS: PCP Family Medicine; Referring Provider Internal Medicine Gastroenterology; Visit Provider Internal Medicine Gastroenterology
PROC: 0DJD8ZZ Inspection of Lower Intestinal Tract, Via Natural or Artificial Opening Endoscopic (ICD-10-PCS; CPT 45378; principal; 2023-01-27 15:25)
DX: Z12.11 Encounter for screening for malignant neoplasm of colon (principal); R13.10 Dysphagia, unspecified; K57.30 Diverticulosis of large intestine without perforation or abscess without bleeding; K21.00 Gastro-esophageal reflux disease with esophagitis, without bleeding; K31.7 Polyp of stomach and duodenum; K22.2 Esophageal obstruction; N42.9 Disorder of prostate, unspecified
CPT/HCPCS: G0121; 43239; 43248; 88305; 88313; J7120; C1769

== ENCOUNTER 2023-05-17 03:51 | Emergency (ER) | payer OTHER, SELFPAY ==
[2023-05-17 03:51] VITALS: BP 166/105; PULSE 95; RESP 19; TEMP 36.7; O2SAT 96
--- NOTE | 2023-05-17 04:03 | CT_ITS ---
INDICATION: FLANK PAIN COMPARISON: None. A radiation dose optimization technique was used for this scan. RADIATION DOSAGE (If Supplied By Facility): CTDIvol/DLP = ( 9.61 ) / ( 677.88 ) mGy/mGycm FINDINGS: Noncontrast serial CT axial images through the abdomen and pelvis with coronal and sagittal reformatted series. PANCREAS: No peripancreatic fat stranding. BOWEL/MESENTERY: No dilated bowel loops. No significant free fluid. No free air. GALLBLADDER: No pericholecystic fat stranding. LIVER/STOMACH: Fatty liver. Posterior right hepatic lobe cyst. ABDOMINAL WALL: Fat-containing umbilical hernia without significant inflammatory fat stranding. URINARY COLLECTING SYSTEM/ KIDNEYS: No obstructing ureteral calculus. No significant renal parenchymal abnormality. Enlarged prostate with periprostatic fat stranding, suggesting prostatitis. This appears to extend to the urinary bladder as well suggesting concomitant cystitis APPENDIX: Appendix is not definitely identified, however, there are no significant right lower quadrant inflammatory fat changes or focal fluid collection to suggest acute appendicitis. LUNG BASES: Unremarkable. BONES: Lumbar dextroscoliosis. CT/Abdomen/Pelvis without Cont IMPRESSION: Enlarged prostate with periprostatic fat stranding, suggesting prostatitis, which appears to extend to the urinary bladder as well, suggesting concomitant cystitis. Fatty liver. Electronically Signed: Rogelio Mari MD at 6:21 EDT ,
--- NOTE | 2023-05-17 04:04 | EX.ED.DYSGE1 ---
HPI History of Present Illness Chief Complaint: Complaint Informant: patient and spouse/S.O. Narrative Narrative: Patient presents secondary to increased urinary frequency and not able to pass large amounts of urine. states that they were recently in [place] and flew home a week ago. She states he had some constipation at that time and she is not sure if his urinary changes were because of constipation. She does feel that he had a fever earlier last week but that has resolved. He does have a history of BPH. He denies dysuria. [facility] Medical History Arthritis BPH (benign prostatic hyperplasia) Cancer Colon polyp Dysarthria Eye problem GERD (gastroesophageal reflux disease) Hemorrhoid History of echocardiogram Injury of head and neck Labile blood pressure Non-smoker Other dystonia Prostate disease Prostate nodule Spasmodic torticollis Thumb laceration Urine retention Vertebral artery syndrome Wears glasses Wears hearing aid Home Medications omeprazole magnesium 20 mg tablet,delayed release (Prilosec OTC) 1 tab PO BID PRN PRN REFLUX 05/20/16 [History Last Taken Unknown] finasteride 5 mg tablet 5 mg PO DAILY 05/21/22 [History Last Taken Unknown] nitroglycerin 0.4 mg sublingual tablet 0.4 mg sublingual Q5-15M PRN chest pain 05/21/22 [History Last Taken Unknown] ciprofloxacin HCl 500 mg tablet (Cipro) 500 mg PO BID #28 tabs 05/17/23 [Rx Last Taken Unknown] Allergy/AdvReac Type Severity Reaction Status Date / Time Penicillins Allergy Unknown Verified 05/17/23 05:11 Surgical History H/O discectomy H/O nasal septoplasty History of appendectomy History of repair of rotator cuff Social History Smoking Status: Never smoker alcohol intake: never ROS ROS ED Constitutional Constitutional ED: Reports fever(s); Denies chills Eyes Eyes: Denies discharge from eye(s) ENT ENT ED: Denies discharge from eye(s), rhinorrhea or sore throat Cardiovascular Cardiovascular: Denies chest pain Respiratory/Chest Respiratory/Chest: Denies cough or dyspnea Gastrointestinal Gastrointestinal: Reports abdominal pain; Denies nausea or vomiting Genitourinary Genitourinary ED: Reports urinary frequency Musculoskeletal Musculoskeletal: Denies back pain or extremity pain Integumentary Denies Abrasions or rash Neurologic Neurologic: Denies headache(s) or weakness Allergic/Immunologic Allergic/Immunologic ED: Denies lip swelling or urticaria EXAM Physical Exam Const Vital Signs: 05/17/23 03:51 05/17/23 05:49 Temperature 98.1 F 98.5 F Temperature Source Oral Oral Pulse Rate 95 85 Respiratory Rate 19 H 18 Blood Pressure 166/105 H 154/92 H Blood Pressure Mean 125 112 Pulse Ox 96 97 Oxygen Delivery Method Room Air Room Air Positive well nourished and well developed General Appearance ED: well developed HEENT Reports moist mucous membranes Eyes EOMs intact bilaterally Chest Wall inspection of chest normal and palpation of chest normal Resp normal respiratory effort and clear to auscultation bilaterally Cardio regular rate and regular rhythm GI GI Narrative: Abdomen soft with mild lower abdominal tenderness. No guarding or rebound. Extremity normal to inspection Neuro oriented x3 Psych mental status grossly normal Skin no rashes or lesions noted MDM MDM MDM Narrative Medical decision making narrative: Bladder scan performed at bedside only showed 63 cc of urine on [address] flank will be obtained to evaluate for constipation, bowel obstruction, urinary retention. Urinalysis obtained to evaluate for infection/hematuria. Lab Data Labs: Laboratory Results - last 24 hr 05/17/23 05:10 Urine Color Yellow Urine Clarity Clear Urine pH 6.0 Ur Specific [place] 1.020 Urine Protein 30 H Urine Glucose (UA) Normal Urine Ketones 5 H Urine Occult Blood 10 H Urine Nitrite Negative Urine Bilirubin Negative Urine Urobilinogen 1 H Ur Leukocyte Esterase 25 H Urine RBC 10-25 SEEN Urine WBC 25-50 SEEN Ur Squamous Epith Cells 10-25 SEEN Urine Bacteria 2+ Urine Mucus 0 SEEN Radiography Diagnostic Testing: Clinical Impression(s) from Imaging Studies Abdomen/Pelvis CT 05/17/23 04:03 IMPRESSION: Enlarged prostate with periprostatic fat stranding, suggesting prostatitis, which appears to extend to the urinary bladder as well, suggesting concomitant cystitis. Fatty liver. Electronically Signed: Rogelio Mari MD at 6:21 EDT , Treatment and Re-Evaluation :: Urinalysis does show 2+ bacteria with 25-50 white cells and 10-25 red cells. Unfortunately 10-25 epithelial cells are also noted. No nitrites noted. CT scan of the abdomen and pelvis reveals enlarged prostate with periprosthetic fat stranding suggesting prostatitis. This extends to the urinary bladder as well suggesting concomitant cystitis. Patient be treated with a course of Cipro for 14 days. Prescription sent to hospital pharmacy to take home with him. He has seen Dr. Flores in the past and be referred back to them for follow-up. Discharge Plan Triage Chief Complaint: Complaint ED Provider: Karen Fabian Dx/Rx/DC Orders Clinical Impression: UTI (urinary tract infection), Acute prostatitis Instructions: ED Prostatitis, ED Urinary Tract Infections in Men Prescriptions: New ciprofloxacin HCl [Cipro] 500 mg tablet 500 mg PO BID Qty: 28 0RF No Action nitroglycerin 0.4 mg tablet, sublingual 0.4 mg sublingual Q5-15M PRN (Reason: chest pain) Rx Instructions: do not exceed 3 doses per episode finasteride 5 mg tablet 5 mg PO DAILY omeprazole magnesium [Prilosec OTC] 20 MG tablet,delayed release (DR/EC) 1 tab PO BID PRN PRN (Reason: REFLUX) Patient Comments: TAKE 1 TO 2 TABLETS BY MOUTH EVERY DAY NEEDED Primary Care Provider: Kirk Wade Referrals: Kirk Wade MD [Primary Care Provider] - Rich Flores MD [Med Staff - Active Staff] - 10-14 Days if not better Disposition Disposition: Home, Self Care
[2023-05-17 05:15] LABS: Mucous, Urine 0 SEEN /hpf (<or=2+)
[2023-05-17 05:27] LABS: Color, Urine Yellow (Yellow); Glucose, Dipstick Normal (Normal); Ketone-Dipstick 5 mg/dl (Negative); Leukocyte Esterase-Dipstick 25 /ul (Negative); Nitrite-Dipstick Negative (Negative); Occult Blood-Urine 10 /ul (Negative); Protein-Dipstick 30 mg/dl (Negative); Urine Bilirubin Dipstick Negative (Negative); Urine Clarity Clear (Clear); Urine Urobilinogen 1 mg/dl (Normal)
[2023-05-17 05:40] LABS: Bacteria 2+ /hpf (None Seen); Red Blood Cells-Urine 10-25 SEEN /hpf (0-5); Squamous Epithelial Cells - UA 10-25 SEEN /hpf (0-5); White Blood Cells 25-50 SEEN /hpf (0-5)
[2023-05-17 05:49] VITALS: BP 154/92; PULSE 85; RESP 18; TEMP 36.9; O2SAT 97
[2023-05-17] MEDS: Ciprofloxacin 500 MG Tablet PO (06:41)
[2023-05-17 06:45] VITALS: BP 188/99; PULSE 92; RESP 18; TEMP 36.6; O2SAT 94
[2023-05-17 07:00] VITALS: PULSE 86; O2SAT 96
== END 2023-05-17 07:12 | disposition home or self-care (01) ==
PROVIDERS: Emergency Provider Emergency Medicine; PCP Family Medicine; Visit Provider Emergency Medicine
DX: N39.0 Urinary tract infection, site not specified (principal); N41.0 Acute prostatitis
CPT/HCPCS: 74176; 81001; 99282

== ENCOUNTER → 2023-07-02 | Outpatient (CLI) | payer OTHER, SELFPAY ==
[2023-07-02 10:39] LABS: PSA,Total- Diagnostic 3.22 ng/mL (0.0-4.0)
== END | disposition home or self-care (01) ==
LOC: LAB 08:25
PROVIDERS: PCP Family Medicine; Referring Provider Nurse Practitioner; Visit Provider Nurse Practitioner
DX: R97.20 Elevated prostate specific antigen [PSA] (principal)
CPT/HCPCS: 36415; 84153

== ENCOUNTER → 2023-09-18 | Outpatient (CLI) | payer OTHER, SELFPAY ==
--- NOTE | 2023-09-18 12:51 | RAD_ITS ---
INDICATION: SOB EXAMINATION/TECHNIQUE: X-RAY - XR Chest 2 Views COMPARISON: Prior study dated: 05/20/2016 FINDINGS: LINES/DEVICES: None. LUNGS: No consolidation, edema or effusion. No pneumothorax. MEDIASTINUM AND CARDIOVASCULAR STRUCTURES: Normal cardiac silhouette. Tortuosity of the thoracic aorta. BONES AND SOFT TISSUES: Anterior fusion of the lower cervical spine. RAD/Chest PA and Lateral IMPRESSION: No radiographic evidence of acute cardiopulmonary disease. Electronically Signed: Samuel Mata MD at 15:58 EDT ,
== END | disposition home or self-care (01) ==
LOC: MTRAD 12:49
PROVIDERS: PCP Family Medicine; Referring Provider Family Medicine; Visit Provider Family Medicine
DX: R06.02 Shortness of breath (principal)
CPT/HCPCS: 71046

== ENCOUNTER → 2023-10-28 | Outpatient (CLI) | payer OTHER, SELFPAY | END | disposition home or self-care (01) | LOC: LAB 12:55 | PROVIDERS: PCP Family Medicine; Referring Provider Urology; Visit Provider Urology | DX: R97.20 Elevated prostate specific antigen [PSA] (principal) | CPT/HCPCS: 36415; 84153 ==